=== PATIENT | male | born 1985 | race Caucasian/White ===

== ENCOUNTER 2022-09-30 17:38 | Emergency (ER) | payer SELFPAY ==
[~2022-09-30] VITALS: Ht 185.4 cm; Wt 73.6 kg
[2022-09-30 18:09] LABS: COLLECTION METHOD CLEAN CATCH
[2022-09-30 18:17] LABS: PH 8.5 (5.0-8.5); URINE APPEARANCE Cloudy (CLEAR/HAZY); URINE BLOOD TRACE-INTACT (NEGATIVE); URINE COLOR Yellow (YELLOW); URINE PROTEIN(semi-quant) 1+ (NEGATIVE)
[2022-09-30 18:18] LABS: URINE GLUCOSE Negative (NEGATIVE); URINE KETONE Negative (NEGATIVE); URINE NITRATE Negative (NEGATIVE)
[2022-09-30 18:19] LABS: MUCOUS Present (NOT PRESENT); SQUAMOUS EPITHELIAL None Seen /hpf (0-10); URINE BACTERIA None Seen /hpf (NONE SEEN)
[2022-09-30 18:45] LABS: HEMOGLOBIN 12.3 g/dl (13.5-18.0); MEAN CELL VOLUME 95 fl (80.0-100.0); MEAN CORPUSCULAR HEMOGLOBIN 30 pg (27-31); MEAN CORPUSCULAR HGB CONC 32 g/dl (33.0-37.0); MEAN PLATELET VOLUME 8.5 fl (7.4-10.4); PLATELET COUNT 613 K/mm3 (130-400); RED BLOOD COUNT 4.11 M/mm3 (4.20-5.60); REDCELL DISTRIBUTION WIDTH-CV 13.1 % (11.5-14.5)
[2022-09-30 18:54] LABS: ALBUMIN 3.3 gm/dL (3.5-5.0); BILIRUBIN,TOTAL 0.4 mg/dL (0.2-1.2); CALCIUM 9.2 mg/dL (8.4-10.2); CREATININE, serum 0.98 mg/dL (0.72-1.25); TOTAL PROTEIN 7.8 gm/dL (6.2-8.1)
[2022-09-30 19:31] LABS: BAND 2 % (0-10); BASOPHIL 1 % (0-2); LYMPHOCYTE 5 % (20.0-51.0); NEUTROPHILS 83 % (42.0-75.2); PLATELET ESTIMATE INCREASED (NORMAL)
[2022-09-30 19:32] LABS: HYPOCHROMIA 1+
[2022-09-30 20:30] VITALS: BP 116/72; PULSE 118; TEMP 99.6
== END 2022-09-30 20:30 | disposition short-term general hospital (02) ==
LOC: COL.ER 17:38
PROVIDERS: Nurse Practitioner
DX: N50.811 Right testicular pain (principal); F17.210 Nicotine dependence, cigarettes, uncomplicated; Z28.310 Unvaccinated for COVID-19
CPT/HCPCS: J0696; J1170; J3010; J7030; Q9967